=== PATIENT | female | born 1955 | race African-American/Black ===

== ENCOUNTER 2018-10-28 13:31 | Inpatient (IN) | payer MEDICAID ==
[~2018-10-28] VITALS: Ht 320 cm; Wt 89.8 kg
[2018-10-28] MEDS ORDERED: SODIUM CHLORIDE 0.9% 1,000 ML IV ONE (13:58)
[2018-10-28] MEDS ORDERED: ONDANSETRON HCL 4MG/2ML INJ IV STA (14:00)
[2018-10-28] MEDS ORDERED: MORPHINE SULFATE 4 MG/ML CPJ (NOT FOR IM USE) IV STA (14:00)
[2018-10-28 14:32] LABS: HEMATOCRIT. 38.2 % (36.0-48.0); HEMOGLOBIN. 12.7 g/dL (12.0-16.0); MEAN CORPUSCULAR VOLUME 90.7 fL (81.0-99.0); MEAN PLATELET VOLUME 8.1 fl (7.4-10.4); PLATELET 390 x1000/uL (130-400); RED BLOOD CELL COUNT 4.21 mill/uL (4.2-5.4); RED CELL DISTRIBUTION WIDTH 16.6 % (11.6-14.6)
[2018-10-28 14:37] LABS: CHLORIDE 110 mEq/L (98-107)
[2018-10-28 14:39] LABS: PROTHROMBIN TIME 10.1 sec (9.6-11.0)
[2018-10-28 14:56] LABS: PLATELET ESTIMATE NORMAL
[2018-10-28] MEDS ORDERED: SODIUM CHLORIDE 0.9% 1000ML BAG (SEPSIS BOLUS) IV ONE (15:30)
[2018-10-28] MEDS ORDERED: PIPERACILLIN/TAZ 3.375G PREMIX 50 ML IV NR (15:43)
[2018-10-28 16:38] LABS: CLARITY URINE CLEAR (CLEAR); COLOR URINE YELLOW (YELLOW); KETONES URINE 1+ (NEGATIVE); LEUKOCYTE ESTERASE URINE NEGATIVE (NEGATIVE); NITRITE URINE NEGATIVE (NEGATIVE); OCCULT BLOOD URINE NEGATIVE (NEGATIVE); PH URINE 7.5 (4.5-8.0); PROTEIN URINE NEGATIVE (NEGATIVE); SPECIFIC GRAVITY URINE 1.017 (1.005-1.030); UROBILINOGEN URINE 0.2 E.U./dL (0.2-1.0)
[2018-10-28] MEDS ORDERED: CLONIDINE 0.1MG TABLET PO PRN (17:15)
[2018-10-28] MEDS: DEXT 5%/0.45% NACL 1000ML 1,000 ML IV SCH (18:08)
[2018-10-28] MEDS ORDERED: IOHEXOL-300 100 ML BOTTLE ONE (19:28)
[2018-10-28 20:00] VITALS: BP 133/62
[2018-10-28 22:00] VITALS: BP 154/66
[2018-10-28] MEDS: ONDANSETRON HCL 4MG/2ML INJ IV PRN (22:48)
[2018-10-28] MEDS: MORPHINE SULFATE 2 MG/ML CPJ (NOT FOR IM USE) IV PRN (23:01)
[2018-10-29] VITALS: BP 130/56
[2018-10-29] MEDS: PIPERACILLIN/TAZOBACTAM 3.375 G in DEXT 5% WATER 100 ML IV SCH ×4 (01:38→16:51)
[2018-10-29] MEDS: DEXT 5%/0.45% NACL 1000ML 1,000 ML IV SCH ×2 (01:40→18:05)
[2018-10-29 03:32] LABS: METHADONE URINE SCREEN NEGATIVE (NEGATIVE); OPIATES URINE SCREEN PRESUMTIVE POSITIVE (NEGATIVE)
[2018-10-29 03:33] LABS: *AMPHETAMINES SCREEN URINE NEGATIVE (NEGATIVE); *BARBITURATES SCREEN URINE NEGATIVE (NEGATIVE); *BENZODIAZEPINES SCREEN URINE NEGATIVE (NEGATIVE); *COCAINE SCREEN URINE NEGATIVE (NEGATIVE); CANNABINOID URINE SCREEN PRESUMTIVE POSITIVE (NEGATIVE); PHENCYCLIDINE URINE SCREEN NEGATIVE (NEGATIVE)
[2018-10-29 04:00] VITALS: BP 114/60
[2018-10-29] MEDS: MORPHINE SULFATE 2 MG/ML CPJ (NOT FOR IM USE) IV PRN ×3 (05:42→22:16)
[2018-10-29] MEDS: ONDANSETRON HCL 4MG/2ML INJ IV PRN ×2 (05:42→16:54)
[2018-10-29 07:16] LABS: BASOPHILS % 0.5 % (0.0-2.0); HEMATOCRIT. 32.7 % (36.0-48.0); HEMOGLOBIN. 10.8 g/dL (12.0-16.0); LYMPHOCYTES % 21.4 % (20.0-50.0); MEAN CORPUSCULAR HEMOGLOBIN 30.3 pg (28.0-32.0); MONOCYTES % 7.2 % (2.0-8.0); NEUTROPHILS % 69.9 % (40.0-76.0); PLATELET 317 x1000/uL (130-400); RED BLOOD CELL COUNT 3.55 mill/uL (4.2-5.4); RED CELL DISTRIBUTION WIDTH 16.9 % (11.6-14.6)
[2018-10-29] MEDS ORDERED: PANT20TA3 PO (07:32)
[2018-10-29 07:50] LABS: CHLORIDE 114 mEq/L (98-107)
[2018-10-29 08:00] VITALS: BP 124/64
[2018-10-29 12:00] VITALS: BP 115/41
[2018-10-29] MEDS ORDERED: ACETAMINOPHEN 325MG TABLET PO PRN (12:30)
[2018-10-29 14:00] VITALS: BP 110/53
[2018-10-29] MEDS: PANTOPRAZOLE SODIUM 40 MG/VIAL IV SCH (16:50)
[2018-10-29] MEDS ORDERED: BISACODYL 5MG TABLET PO ONE (18:00)
[2018-10-29 20:00] VITALS: BP 109/44
[2018-10-30] VITALS: BP 118/62
[2018-10-30] MEDS: PIPERACILLIN/TAZOBACTAM 3.375 G in DEXT 5% WATER 100 ML IV SCH ×5 (01:08→23:45)
[2018-10-30] MEDS: MORPHINE SULFATE 2 MG/ML CPJ (NOT FOR IM USE) IV PRN (02:45)
[2018-10-30 04:00] VITALS: BP 125/53
[2018-10-30] MEDS: DEXT 5%/0.45% NACL 1000ML 1,000 ML IV SCH ×2 (09:15→22:24)
[2018-10-30 09:26] LABS: BASOPHILS % 0.4 % (0.0-2.0); EOSINOPHILS % 1.6 % (0.0-5.0); HEMATOCRIT. 33.6 % (36.0-48.0); LYMPHOCYTES % 24.5 % (20.0-50.0); MEAN CORPUSCULAR HEMOGLOBIN 30.3 pg (28.0-32.0); MEAN CORPUSCULAR VOLUME 92.8 fL (81.0-99.0); MEAN PLATELET VOLUME 8.2 fl (7.4-10.4); MONOCYTES % 6.1 % (2.0-8.0); NEUTROPHILS % 67.4 % (40.0-76.0); PLATELET 326 x1000/uL (130-400); RED BLOOD CELL COUNT 3.62 mill/uL (4.2-5.4); RED CELL DISTRIBUTION WIDTH 16.8 % (11.6-14.6)
[2018-10-30 09:33] LABS: CHLORIDE 113 mEq/L (98-107)
[2018-10-30] MEDS: PANTOPRAZOLE SODIUM 40 MG/VIAL IV SCH (09:53)
[2018-10-30] MEDS: MORPHINE SULFATE 4 MG/ML CPJ (NOT FOR IM USE) IV PRN ×5 (13:58→23:38)
[2018-10-30 20:00] VITALS: BP 108/52
[2018-10-31] VITALS: BP 112/59
[2018-10-31 04:00] VITALS: BP 124/65
[2018-10-31] MEDS: MORPHINE SULFATE 4 MG/ML CPJ (NOT FOR IM USE) IV PRN ×3 (04:49→21:28)
[2018-10-31] MEDS: PIPERACILLIN/TAZOBACTAM 3.375 G in DEXT 5% WATER 100 ML IV SCH ×4 (06:00→21:24)
[2018-10-31 07:10] LABS: BASOPHILS % 0.5 % (0.0-2.0); EOSINOPHILS % 2.9 % (0.0-5.0); HEMOGLOBIN. 10.3 g/dL (12.0-16.0); LYMPHOCYTES % 27.1 % (20.0-50.0); MEAN CORPUSCULAR HEMOGLOBIN 30.5 pg (28.0-32.0); MEAN CORPUSCULAR VOLUME 92.1 fL (81.0-99.0); NEUTROPHILS % 62.5 % (40.0-76.0); PLATELET 307 x1000/uL (130-400); RED BLOOD CELL COUNT 3.37 mill/uL (4.2-5.4); RED CELL DISTRIBUTION WIDTH 16.1 % (11.6-14.6)
[2018-10-31 07:30] LABS: CHLORIDE 114 mEq/L (98-107)
[2018-10-31 08:00] VITALS: BP 116/72
[2018-10-31] MEDS: PANTOPRAZOLE SODIUM 40 MG/VIAL IV SCH (09:23)
[2018-10-31] MEDS ORDERED: POTASSIUM CHLORIDE 20MEQ TABLET SR PO SCH (10:30)
[2018-10-31 12:27] VITALS: BP 118/73
[2018-10-31] MEDS ORDERED: DIATR MEGLU/DIATRIZOATE SOLN 30ML PO SCH ×2 (14:30→17:30)
[2018-10-31] MEDS ORDERED: METOCLOPRAMIDE HCL 10MG TABLET PO NR (15:00)
[2018-10-31 20:00] VITALS: BP 103/52
[2018-10-31] MEDS: DEXT 5%/0.45% NACL 1000ML 1,000 ML IV SCH (21:24)
[2018-11-01] VITALS: BP 111/65
[2018-11-01] MEDS: PIPERACILLIN/TAZOBACTAM 3.375 G in DEXT 5% WATER 100 ML IV SCH ×2 (02:04→08:45)
[2018-11-01] MEDS: MORPHINE SULFATE 4 MG/ML CPJ (NOT FOR IM USE) IV PRN (03:51)
[2018-11-01 04:00] VITALS: BP 111/47
[2018-11-01 06:14] LABS: BASOPHILS % 0.7 % (0.0-2.0); EOSINOPHILS % 4.1 % (0.0-5.0); HEMATOCRIT. 30.9 % (36.0-48.0); HEMOGLOBIN. 10.4 g/dL (12.0-16.0); MEAN CORPUSCULAR HEMOGLOBIN 30.7 pg (28.0-32.0); MEAN PLATELET VOLUME 8.1 fl (7.4-10.4); MONOCYTES % 7.1 % (2.0-8.0); NEUTROPHILS % 54.1 % (40.0-76.0); PLATELET 304 x1000/uL (130-400); RED CELL DISTRIBUTION WIDTH 16.1 % (11.6-14.6)
[2018-11-01 06:55] LABS: CHLORIDE 114 mEq/L (98-107)
[2018-11-01 08:46] VITALS: BP 110/51
[2018-11-01] MEDS: DEXT 5%/0.45% NACL 1000ML 1,000 ML IV SCH (08:47)
[2018-11-01] MEDS: PANTOPRAZOLE SODIUM 40 MG/VIAL IV SCH (10:13)
[2018-11-01 12:34] VITALS: BP 132/65
[2018-11-01 13:11] VITALS: BP 116/70
== END 2018-11-01 13:20 | disposition home or self-care (01) | DRG 720 ==
LOC: ER 13:31 → EDBEDREQ 16:38 → EDBEDREQTM 16:38 → ENRESERV 19:37 → 6WST 20:24 → 6EST 22:40
PROVIDERS: ADMIT Internal Medicine; ATTEND Internal Medicine
DX: A41.9 Sepsis, unspecified organism (principal); E87.2 Acidosis; K57.32 Diverticulitis of large intestine without perforation or abscess without bleeding; E87.8 Other disorders of electrolyte and fluid balance, not elsewhere classified; K92.2 Gastrointestinal hemorrhage, unspecified; F12.90 Cannabis use, unspecified, uncomplicated; M48.061 Spinal stenosis, lumbar region without neurogenic claudication; K59.00 Constipation, unspecified; K62.89 Other specified diseases of anus and rectum; E86.0 Dehydration; Z90.710 Acquired absence of both cervix and uterus; Z91.19 Patient's noncompliance with other medical treatment and regimen
CPT/HCPCS: 36415; 71045; 74176; 74177; 80048; 80305; 81003; 82270; 82378; 83605; 84145; 85044; 86301; 86850; 86900; 93005; 93970; 96361; 96374; 96375; 99291; C9113; J2270; J2405; J2543; J7030; J7060; J8597; Q9963; Q9967